=== PATIENT | male | born 1995 | race Caucasian/White ===

== ENCOUNTER 2025-05-15 10:44 | Emergency (ER) | payer SELFPAY ==
--- NOTE | 2025-05-15 10:47 | ED_ITS ---
HPI - Skin/Abscess/Foreign Bdy General Chief complaint: Skin/Abscess/Foreign Body Stated complaint: right leg rash Time Seen by Provider: 05/15/25 10:47 Source: patient Mode of arrival: ambulatory Limitations: no limitations History of Present Illness HPI narrative: Artie is a 29-year-old male patient presenting to the clinic today with complaints of a painful itchy sore to his right leg x2 days. He reports while he is work 2 days ago he thought he had been bitten by a bug. A painful stinging sensation to the right lower leg and looked down the area was red. States over the past 2 days it has grown in size and has blistered with some black appearance. No fevers, chills, body aches. Has not taken anything for pain. States he has been trying not to itch it. Related Data Allergies Allergy/AdvReac Type Severity Reaction Status Date / Time No Known Allergies Allergy Verified 05/15/25 10:54 Review of Systems Review of Systems: Pertinent positives per HPI. Patient denies any fever, chills, headache, visual changes, dizziness, cough, runny nose, sore throat, shortness of breath, chest pain, palpitations, nausea, vomiting, diarrhea, constipation, abdominal pain, or any urinary issues. PMFSH Comments At the time of my signature, I reviewed and agree with the nursing past medical, surgical, social, and family history. There is no relevant family history pertinent to the patient complaint. Exam Narrative: General: Well-developed, well nourished, in no apparent distress Head: Normocephalic, atraumatic. Cardio: Regular rate and rhythm, s1 and s2 normal, no murmur appreciated. Resp: Clear to auscultation bilaterally, no rhonchi, rales, wheezing or rubs. Integumentary: Daniels, warm, and dry, red, raised, painful/itchy sore to the right posterior lower leg with induration and redness measuring 4 x 3 cm. Area has 3 small blisters with black appearance. Course Course Emergency Course: Portions of this record may have been created with voice recognition software. Level of Care: Express Care Visit Vital Signs Vital signs: Vital Signs Temperature 36.7 C 05/15/25 10:50 Pulse Rate 90 05/15/25 10:50 Respiratory Rate 20 05/15/25 10:50 Blood Pressure 150/86 H 05/15/25 10:50 Pulse Oximetry 100 05/15/25 10:50 Temperature 36.7 C 05/15/25 10:50 Pulse Rate 90 05/15/25 10:50 Respiratory Rate 20 05/15/25 10:50 Blood Pressure 150/86 H 05/15/25 10:50 Pulse Oximetry 100 05/15/25 10:50 Vital signs reviewed Procedures Abscess I/D Leg: Date of Incision: 05/15/25 Side (if applicable): right Technique: other (Incised with 23 gauge needle) Amount of fluid expressed (mL): 0.5 Irrigation: No Packing used?: none I&D Results: Other (Yellowish clear fluid) Complications: other (None) Abcess I&D Additional Comments: Verbal consent obtained for incision and drainage. Risk and benefits explained and patient voiced understanding. Area was cleansed with alcohol swab. A 23 gauge needle was then used to incise the blisters and yellow clearish fluid expressed and wound culture obtained and sent to lab. Area was cleansed with antiseptic wound wash and patted dry with a sterile 4 x 4. Triple antibiotic oi ntment Band-Aid was applied. Patient tolerated procedure well. MDM - Skin/Abscess/Foreign Bdy MDM Narrative Medical decision making narrative: At the time of visit patient is resting comfortably on the exam table. Patient appears to be nontoxic. Complaints of a painful itchy sore to his right leg x2 days. He reports while he is work 2 days ago he thought he had been bitten by a bug. A painful stinging sensation to the right lower leg and looked down the area was red. States over the past 2 days it has grown in size and has blistered with some black appearance. No fevers, chills, body aches. Has not taken anything for pain. States he has been trying not to itch it. Recommend draining and obtain wound culture and patient agrees. Procedure: Drainage using needle was performed in the clinic today. Area was cleansed with alcohol swab and a 23 gauge needle was used to open up the blistered areas, slightly yellowish clear fluid was expressed, and wound culture was obtained and sent to the lab. Triple antibiotic ointment and Band-Aid was applied. Patient tolerated well. Labs: Wound culture ordered Plan: I suspect patient has an infected insect bite to the right lower extremity. Culture was obtained and sent to the lab. Prescription for clindamycin was sent to the pharmacy. May take Tylenol/Motrin as needed for pain. May take Benadryl as needed for itching. Supportive measures were discussed with the patient and they voiced understanding discharge instructions and agrees to treatment plan. Return precautions reviewed Differential Diagnosis Differential diagnosis: Likely abscess of skin or subcutaneous tissue, viral exanthem, dermatophytosis, urticaria, herpes zoster, allergic reaction to drug, cellulitis, eczema, insect bites, impetigo and contact dermatitis Discharge Plan Discharge Clinical Impression: Infected insect bite Qualifiers: Encounter type: initial encounter Qualified Code(s): W57.XXXA - Bitten or stung by nonvenomous insect and other nonvenomous arthropods, initial encounter Patient Disposition: Home Condition: Stable Instructions: Antibiotic Form, Insect Bite or Sting (ED) Additional Instructions: Drainage of the wound was performed in the clinic today. Wound culture was obtained and sent to the lab Take clindamycin as prescribed Keep wound clean and dry May take Tylenol/Motrin per bottle directions as needed for pain Watch for signs and symptoms of infection-fever, redness, streaking, swelling, purulent discharge, or increase in pain. Follow up with your PCP in 2-3 days for wound check Patient Language: Armenian Prescriptions: New clindamycin HCl [Cleocin HCl] 300 mg capsule 300 mg PO Q8H 10 Days Qty: 30 0RF Follow-up/Referrals: UNKNOWN,DOCTOR [Non-Staff] - Time of Disposition: 11:15 Quality NIHSS Nursing Documentation ED NIHSS nursing documentation: reviewed/agree
[2025-05-15 10:50] VITALS: BP 150/86; PULSE 90; RESP 20; TEMP 36.7; O2SAT 100
--- OUTSIDE RECORDS SUMMARY | 2025-05-15 10:50 | XMS_ITS | Clinical Summary ---
Author Organization [facility] Address [address] [place] [address] Phone Care Team Providers Care Media Services Coordinator Name Role Phone Provider, None Primary Care Provider Unavailabl e Allergies No known active allergies Immunizations Immunization Administration Dates Next Due TDAP Vaccine 06/30/2024 Social History Tobacco Use Types Packs/Day Years Used Date Smoking Tobacco: Never Assessed Sex and Gender Information Value Date Recorded Sex Assigned at Not on file Legal Sex Male 7:51 PM CDT Gender Identity Not on file Sexual Orientation Not on file Last Filed Vital Signs Vital Sign Reading Time Taken Comments Blood Pressure 131/75 06/30/2024 8:45 PM CDT Pulse 56 06/30/2024 8:45 PM CDT Temperature 37.1 C (98.7 F) 06/30/2024 8:45 PM CDT Respiratory Rate 18 06/30/2024 8:45 PM CDT Oxygen Saturation 96% 06/30/2024 8:45 PM CDT Inhaled Oxygen Concentration - - Weight 99.8 kg (220 lb) 06/30/2024 7:58 PM CDT Height 185.4 cm (6' 1) 06/30/2024 7:58 PM CDT Body Mass Index 29.03 06/30/2024 7:58 PM CDT Plan of Treatment Health Maintenance Due Date Last Done Comments Hepatitis C Virus (HCV) Screening 1995 Human Papillomavirus (HPV) Immunization (1 - 3-dose SCDM series) 2022 SARS-COV-2 Immunization (2 - season) 2024 05/31/2021 Influenza Immunization (#1) 2025 08/06/2011 Respiratory Syncytial Virus (RSV) Immunization (Adult) (1 - 1-dose 75+ series) 2070 Hepatitis B Immunization Completed 996, 1995, 1995 Meningococcal Immunization (ACWY) Aged Out 04/27/2010 No longer eligible based on patient's age to complete this topic TdaP Immunization Discontinued 06/30/2024, 03/07/2006 Pneumococcal Immunization Combined Aged Out No longer eligible based on patient's age to complete this topic Rotavirus Immunization Aged Out No lo nger eligible based on patient's age to complete this topic Insurance [facility] Care Teams Media Services Coordinator Relationship Specialty Start Date End Date Provider, None [place] PCP - General 06/30/24
== END 2025-05-15 11:20 | disposition home or self-care (01) ==
PROVIDERS: Emergency Provider Nurse Practitioner Family
DX: S80.861A Insect bite (nonvenomous), right lower leg, initial encounter (principal); L08.9 Local infection of the skin and subcutaneous tissue, unspecified; W57.XXXA Bitten or stung by nonvenomous insect and other nonvenomous arthropods, initial encounter
CPT/HCPCS: 10140; 87070; 87075; 87205; 99213; G0463